=== PATIENT | female | born 1990 | race Caucasian/White ===

== ENCOUNTER 2018-11-12 08:02 | Emergency (ER) | payer OTHER, MEDICAID, SELFPAY ==
[2018-11-12 08:05] VITALS: BP 98/61; PULSE 74; RESP 18; TEMP 37.1; O2SAT 97
--- NOTE | 2018-11-12 08:27 | ED.ABDPAIN ---
HPI - Abdominal Pain General Chief Complaint: Abdominal Pain Stated Complaint: Appendix pain Time Seen by Provider: 11/12/18 08:22 Source: patient and old records reviewed Mode of arrival: ambulatory Limitations: no limitations History of Present Illness HPI narrative: Patient is a 28-year-old female who presents with right lower quadrant pain. She says it has been off and on his she says it comes every 3 months. She says multiple studies done including gastric emptying, she had multiple CTs and testing done. She has a GI doctor. She schedule for colonoscopy and endoscopy. She states this pain started in her right lower quadrant as always does around 5:00 a.m.. She feels nauseous not vomiting no fever. She said that time she just waited it out. She says no one will take her appendix out. But that is where she continues to have pain. Review of Systems Review of Systems GENERAL: Denies chills, fatigue, malaise, fever, sweats, travel HEENT: Denies sinus pain, ear pain, sore throat, difficulty swallowing, neck pain RESPIRATORY: Denies dyspnea, cough, wheezing, hemoptysis, sputum. CARDIOVASCULAR: Denies chest pain, palpitations, orthopnea, edema GASTROINTESTINAL: See HPI : Denies dysuria, frequency, incontinence, hematuria, urinary retention, flank pain. MUSCULOSKELETAL: Denies weakness, joint pain, or bony pain SKIN: No rash, no erythema, no pruritus NEUROLOGIC: Denies weakness, dizziness, headache, numbness, change in speech, confusion PSYCHIATRIC: No concerning psychosocial issues. 12 point review of systems is negative except for those stated above and HPI [facility] Medical History Chronic right lower quadrant pain (Acute) Exam Initial Vital Signs Initial Vital Signs: Vital Signs Temperature 98.8 F 11/12/18 08:05 Pulse Rate 74 11/12/18 08:05 Respiratory Rate 18 11/12/18 08:05 Blood Pressure 98/61 11/12/18 08:05 Pulse Oximetry 97 11/12/18 08:05 GENERAL: Well-appearing, well-nourished and in no acute distress. HEENT: Head atraumatic,EOMI, pupils reactive, face symmetric, moist mucous membranes CARDIOVASCULAR: Regular rate and rhythm without murmurs, rubs or gallops. RESPIRATORY: Breath sounds equal bilaterally, no wheezes rales or rhonchi. ABDOMEN: Soft mild discomfort right lower quadrant no guarding no rebound no rosvings sign EXTREMITIES: Normal range of motion, no clubbing or edema. Neurovascularly intact NEUROLOGICAL: Alert and oriented x4.Normal gait and speech. Cranial nerves II through XII grossly intact. SKIN: Warm, dry, no laceration, no petechiae, no rashes or lesions. Course Orders Ordered: ED Orders 11/12/18 08:30 US abdomen limited Stat 11/12/18 08:40 Complete Blood Count AUTO DIFF Stat Comprehensive Metabolic Panel Stat Lipase Stat 11/12/18 08:47 US pelvic complete Stat 11/12/18 08:50 Urine Culture Stat Urine Microscopic Stat Discontinued Medications Ketorolac Tromethamine (Toradol) 30 mg IV NOW ONE Stop: 11/12/18 08:30 Last Admin: 11/12/18 08:52 Dose: 30 mg Ondansetron HCl (Zofran) 4 mg IV NOW ONE Stop: 11/12/18 08:30 Last Admin: 11/12/18 08:52 Dose: 4 mg Vital Signs - 8 hr 11/12/18 08:05 11/12/18 08:30 11/12/18 10:07 Temperature 98.8 F Pulse Rate 74 68 78 Respiratory Rate 18 16 16 Blood Pressure [Left Arm] 98/61 90/55 L 93/62 Pulse Oximetry 97 98 100 MDM - Abdominal Pain Lab Data Attestation: I reviewed the patient's lab results. Result diagrams: 11/12/18 08:40 11/12/18 08:40 Lab Results 11/12/18 11/12/18 11/12/18 Range/Units 08:40 08:40 08:50 WBC 6.0 (4.5-11.0) X10^3/uL RBC 4.24 (4.0-5.2) X10^6/uL Hgb 13.5 (12.0-16.0) g/dL Hct 39.4 (36-46) % MCV 92.9 (80-100) fL MCH 31.8 (26-34) PG MCHC 34.2 (30-36) % RDW 12.0 (11.6-14.8) % Plt Count 245 (150-400) X10^3/uL Neut % (Auto) 61.7 (50-75) % Lymph % (Auto) 29.2 (25-40) % [place] % (Auto) 6.7 (3-14) % Eos % (Auto) 2.0 (2-4) % Baso % (Auto) 0.4 (0-2) % Neut # (Auto) 3700 (8966-3506) /uL Lymph # (Auto) 1800 (9867-0329) /uL [place] # (Auto) 400 (0-900) /uL Eos # (Auto) 100 (0-450) /uL Baso # (Auto) 0 (0-100) /uL Sodium 143 (137-145) mmol/L Potassium 4.0 (3.4-5.1) mmol/L Chloride 106 (98-107) mmol/L Carbon Dioxide 28 (22-32) mmol/L BUN 10 (7-17) mg/dL Creatinine 0.70 (0.52-1.04) mg/dL Estimated GFR > 60.0 (>60) mL/min BUN/Creatinine Ratio 14.3 (6-22) Glucose 96 (70-100) mg/dL Calcium 9.2 (8.4-10.2) mg/dL Total Bilirubin 0.8 (0.2-1.3) mg/dL AST 22 (14-36) IU/L ALT 18 (9-52) IU/L Alkaline Phosphatase 64 (38-126) U/L Total Protein 7.8 (6.3-8.2) g/dL Albumin 4.5 (3.5-5.0) g/dL Globulin 3.3 (1.7-4.1) g/dL Albumin/Globulin Ratio 1.4 (1.0-2.8) Lipase 111 (23-300) U/L Urine RBC None seen (0-5/HPF) Urine WBC 5-10/hpf H (0-5/HPF) Ur Squamous Epith Cells 1-5 /hpf (0-5/HPF) Urine Bacteria Few (2-10) H (None) Ur Culture Indicated? Specimen cultured Point of care testing: Point of Care Testing Test Results Negative Urine Dip Bedside Urine Glucose Negative Bedside Urine Bilirubin - Negative Bedside Urine Ketone - Negative Urine Specific [place] 1.015 Bedside Urine Occult Blood - Negative Bedside Urine pH 8.5 Bedside Urine Protein +/- 15 Bedside Urine Urobilinogen +/- 1mg Bedside Urine Nitrite - Negative Bedside Urine Leukocytes +/- 15 Esterase Imaging Data US - abdomen: Radiologist's impression: PROCEDURE: US ABDOMEN LIMITED INDICATIONS: RIGHT LOWER QUAD PAIN TECHNIQUE: Real-time focused scanning was performed of the abdomen with attention to the appendix, with image documentation. COMPARISON: None. FINDINGS: Appendix visualization: Not seen Appendix measurements: Unable to assess Associated findings: Echogenic fat: Unable to assess Appendiceal compressibility: Unable to assess Appendicoliths: Unable to assess Nearby free fluid: Minimal Lymphadenopathy: Not seen Tenderness on exam: Positive IMPRESSION: The appendix was not visualized. The patient was significantly tender overlying the right lower quadrant. If there is high clinical concern for appendicitis, please consider contrast enhanced CT of the abdomen and pelvis with oral and intravenous contrast for further evaluation. Dictated by: Ant Chow M.D. on 11/12/2018 at 9:21 pelvic US: Radiologist's impression: PROCEDURE: US PELVIC COMPLETE INDICATIONS: RLQ PAIN TECHNIQUE: Real-time scanning was performed of the pelvic organs, with image documentation. Additional endovaginal scanning was necessary due to incomplete visualization of the adnexal and endometrial structures by transabdominal scanning. COMPARISON: None. FINDINGS: Transabdominal scanning: Limited scanning through the kidneys shows no hydronephrosis. No pathologic free abdominal or pelvic fluid. Endovaginal scanning: Uterus: Uterus is normal in size at 9.3 x 4.2 x 6.2 cm. The endometrium measures 9 mm in combined thickness. No focal myometrial lesions are identified. A trace amount of fluid is seen within the endometrium. Prominent parametrial vessels are incidentally noted. Ovaries: The right ovary measures 4.3 x 2.2 x 3.3 cm. The left ovary measures 5.0 x 1.9 x 2.5 cm. Both ovaries are mildly enlarged. There is a complex 2.3 cm right ovarian cystic lesion and a simple appearing 2.0 cm left ovarian cyst. The right ovarian cystic lesion demonstrates central heterogeneous fluid with soft tissue located along the periphery and of mild increased peripheral vascularity. IMPRESSION: 1. Complex right ovarian cystic lesion may represent a collapsing ovarian cyst. A corpus luteum cyst or an ectopic cannot be completely excluded and correlation with beta hCG levels is recommended. 2. Simple left ovarian cyst. 3. Multiple prominent parametrial vessels within the pelvis. Please correlate clinically to exclude pelvic congestion syndrome. Dictated by: Ant Chow M.D. on 11/12/2018 at 9: MDM Narrative Medical decision making narrative: The patient has chronic ongoing abdominal right lower quadrant pain. She has appropriate outpatient follow-up for colonoscopy and EGD on her ultrasound. This time I think it more likely that her ovarian cyst is causing her discomfort rather than her appendix. She has no leukocytosis she is afebrile. She has had multiple CTs in the past at this time I do not believe her to needed CT. The appendix was not visualized on the abdominal ultrasound. She was previously treated for a UTI she denies any pain or frequent urination no vaginal discharge. Discharge Plan Departure Patient Disposition: Home Clinical Impression: Complex cyst of right ovary Discharge Date/Time: 11/12/18 10:47 Interventions: ED Discharge Assessment Last Done: 11/12/18 10:46 Instructions: DI for Ovarian Cyst Activity Restrictions/Additional Instructions: *You have been diagnosed with right ovarian cyst *What to do: At this time pain does not appear to be her appendix. I read it recommend to continue to follow up with her GI specialist. You do have a cyst on right ovary along with her left ovary. *Continue to take medications as directed *Follow up with your primary care provider in 2-3 days *Return to ER if you should have increasing pain persistent vomiting inability to tolerate fluids or any new, worsening or concerning symptoms Referrals: Barbara Mcclain MD [Primary Care Provider] -
[2018-11-12 08:30] VITALS: BP 90/55; PULSE 68; RESP 16; O2SAT 98
--- NOTE | 2018-11-12 08:30 | DI.US.S_ITS ---
PROCEDURE: US ABDOMEN LIMITED INDICATIONS: RIGHT LOWER QUAD PAIN TECHNIQUE: Real-time focused scanning was performed of the abdomen with attention to the appendix, with image documentation. COMPARISON: None. FINDINGS: Appendix visualization: Not seen Appendix measurements: Unable to assess Associated findings: Echogenic fat: Unable to assess Appendiceal compressibility: Unable to assess Appendicoliths: Unable to assess Nearby free fluid: Minimal Lymphadenopathy: Not seen Tenderness on exam: Positive IMPRESSION: The appendix was not visualized. The patient was significantly tender overlying the right lower quadrant. If there is high clinical concern for appendicitis, please consider contrast enhanced CT of the abdomen and pelvis with oral and intravenous contrast for further evaluation. Dictated by: Ant Chow M.D. on 11/12/2018 at 9:21 Approved by: Ant Chow M.D. on 11/12/2018 at 9:22
--- NOTE | 2018-11-12 08:47 | DI.US.S_ITS ---
PROCEDURE: US PELVIC COMPLETE INDICATIONS: RLQ PAIN TECHNIQUE: Real-time scanning was performed of the pelvic organs, with image documentation. Additional endovaginal scanning was necessary due to incomplete visualization of the adnexal and endometrial structures by transabdominal scanning. COMPARISON: None. FINDINGS: Transabdominal scanning: Limited scanning through the kidneys shows no hydronephrosis. No pathologic free abdominal or pelvic fluid. Endovaginal scanning: Uterus: Uterus is normal in size at 9.3 x 4.2 x 6.2 cm. The endometrium measures 9 mm in combined thickness. No focal myometrial lesions are identified. A trace amount of fluid is seen within the endometrium. Prominent parametrial vessels are incidentally noted. Ovaries: The right ovary measures 4.3 x 2.2 x 3.3 cm. The left ovary measures 5.0 x 1.9 x 2.5 cm. Both ovaries are mildly enlarged. There is a complex 2.3 cm right ovarian cystic lesion and a simple appearing 2.0 cm left ovarian cyst. The right ovarian cystic lesion demonstrates central heterogeneous fluid with soft tissue located along the periphery and of mild increased peripheral vascularity. IMPRESSION: 1. Complex right ovarian cystic lesion may represent a collapsing ovarian cyst. A corpus luteum cyst or an ectopic cannot be completely excluded and correlation with beta hCG levels is recommended. 2. Simple left ovarian cyst. 3. Multiple prominent parametrial vessels within the pelvis. Please correlate clinically to exclude pelvic congestion syndrome. Dictated by: Ant Chow M.D. on 11/12/2018 at 9:22 Approved by: Ant Chow M.D. on 11/12/2018 at 9:25
[2018-11-12] MEDS: ONDANSETRON 4 MG/2 ML INJ IV (08:52)
[2018-11-12] MEDS: KETOROLAC 60 MG/2 ML VIAL 30 MG IV (08:52)
[2018-11-12 08:58] LABS: Add Manual Diff / Slide Review NO; Basophils Absolute Auto 0 /uL (0-100); Basophils Percent Auto 0.4 % (0-2); Eosinophils Absolute Auto 100 /uL (0-450); Hematocrit 39.4 % (36-46); Hemoglobin 13.5 g/dL (12.0-16.0); Lymphocytes Absolute Auto 1800 /uL (1100-4500); Lymphocytes Percent Auto 29.2 % (25-40); Mean Corpuscular HGB Conc 34.2 % (30-36); Mean Corpuscular Hemoglobin 31.8 PG (26-34); Mean Corpuscular Volume 92.9 fL (80-100); Monocytes Absolute Auto 400 /uL (0-900); Monocytes Percent Auto 6.7 % (3-14); Neutrophils Absolute Auto 3700 /uL (1500-7000); Neutrophils Percent Auto 61.7 % (50-75); Platelet Count 245 X10^3/uL (150-400); Red Blood Cell Count 4.24 X10^6/uL (4.0-5.2)
[2018-11-12 09:01] LABS: RBC Urine None Seen (0-5/HPF)
[2018-11-12 09:03] LABS: Alanine Aminotransferase 18 IU/L (9-52); Albumin 4.5 g/dL (3.5-5.0); Albumin Globulin Ratio 1.4 (1.0-2.8); Alkaline Phosphatase 64 U/L (38-126); Aspartate Aminotransferase 22 IU/L (14-36); BUN Creatinine Ratio 14.3 (6-22); Bilirubin Total 0.8 mg/dL (0.2-1.3); Blood Urea Nitrogen 10 mg/dL (7-17); Calcium 9.2 mg/dL (8.4-10.2); Carbon Dioxide 28 mmol/L (22-32); Chloride 106 mmol/L (98-107); Estimated Glomerular Filt Rate > 60.0 mL/min (>60); Globulin 3.3 g/dL (1.7-4.1); Glucose 96 mg/dL (70-100); HEMOLYSIS < 15 (0-50); Lipase 111 U/L (23-300); Sodium 143 mmol/L (137-145); Total Protein 7.8 g/dL (6.3-8.2)
[2018-11-12 09:08] LABS: Bacteria Urine Few (2-10); Culture Indicated Urine Specimen Cultured; Squamous Epithelial Cell Urine 1-5 /HPF (0-5/HPF); WBC Urine 5-10/HPF (0-5/HPF)
[2018-11-12 10:07] VITALS: BP 93/62; PULSE 78; RESP 16; O2SAT 100
== END 2018-11-12 10:47 | disposition home or self-care (01) ==
PROVIDERS: Emergency Provider Emergency Medicine; PCP Family Medicine
DX: N83.201 Unspecified ovarian cyst, right side (principal)
CPT/HCPCS: 36591; 76705; 76856; 80053; 81003; 81015; 81025; 83690; 85025; 87077; 87086; 87186; 96374; 96375; 99283; 99284; J1885; J2405

== ENCOUNTER 2018-12-26 11:51 | Emergency (ER) | payer OTHER, MEDICAID, SELFPAY ==
[2018-12-26 13:11] VITALS: BP 100/62; PULSE 80; RESP 13; TEMP 36.6; O2SAT 99
== END 2018-12-26 15:19 | disposition left against medical advice (07) ==
PROVIDERS: Emergency Provider Emergency Medicine; PCP Family Medicine
DX: N93.9 Abnormal uterine and vaginal bleeding, unspecified (principal)
CPT/HCPCS: 99282

== ENCOUNTER 2019-03-06 19:53 | Emergency (ER) | payer OTHER, MEDICAID, SELFPAY ==
[2019-03-06 20:00] VITALS: BP 89/59; PULSE 81; RESP 16; TEMP 37.1; O2SAT 98
[2019-03-06 20:32] LABS: Add Manual Diff / Slide Review NO; Basophils Absolute Auto 0 /uL (0-100); Basophils Percent Auto 0.7 % (0-2); Eosinophils Absolute Auto 100 /uL (0-450); Eosinophils Percent Auto 2.2 % (2-4); Hematocrit 39.1 % (36-46); Hemoglobin 13.3 g/dL (12.0-16.0); Lymphocytes Absolute Auto 1800 /uL (1100-4500); Lymphocytes Percent Auto 27.5 % (25-40); Mean Corpuscular HGB Conc 34.1 % (30-36); Mean Corpuscular Hemoglobin 31.9 PG (26-34); Mean Corpuscular Volume 93.5 fL (80-100); Monocytes Absolute Auto 500 /uL (0-900); Neutrophils Absolute Auto 4200 /uL (1500-7000); Neutrophils Percent Auto 62.6 % (50-75); Platelet Count 258 X10^3/uL (150-400); Red Blood Cell Count 4.18 X10^6/uL (4.0-5.2); Red Cell Distribution Width 12.2 % (11.6-14.8); White Blood Cell Count 6.7 X10^3/uL (4.5-11.0)
--- NOTE | 2019-03-06 20:38 | PC.NURSE ---
reports pcp putting her on oral contraceptives that caused complictions and when she was told to stop about 9 days ago she states she started having bright red blood vaginal discharge. She now states there are clots with the bright red blood and she is soiling about 9 heavy duty tampons a day.
[2019-03-06 20:46] LABS: Alanine Aminotransferase 20 IU/L (<35); Albumin 4.3 g/dL (3.5-5.0); Albumin Globulin Ratio 1.4 (1.0-2.8); Alkaline Phosphatase 65 U/L (38-126); Aspartate Aminotransferase 29 IU/L (14-36); Bilirubin Total 0.9 mg/dL (0.2-1.3); Blood Urea Nitrogen 16 mg/dL (7-17); Calcium 8.9 mg/dL (8.4-10.2); Carbon Dioxide 28 mmol/L (22-32); Chloride 104 mmol/L (98-107); Estimated Glomerular Filt Rate > 60.0 mL/min (>60); Globulin 3.1 g/dL (1.7-4.1); Glucose 82 mg/dL (70-100); HEMOLYSIS < 15 (0-50); Potassium 3.8 mmol/L (3.4-5.1); Sodium 140 mmol/L (137-145); Total Protein 7.4 g/dL (6.3-8.2)
[2019-03-06 20:59] LABS: Bacteria Urine None Seen
[2019-03-06 21:07] VITALS: BP 97/57; PULSE 82; RESP 14; O2SAT 99
[2019-03-06 21:07] LABS: Culture Indicated Urine Cult Not Indicated; RBC Urine 10-30/HPF (0-5/HPF); Squamous Epithelial Cell Urine 0-1 /HPF (0-5/HPF); WBC Urine 1-5/HPF (0-5/HPF)
--- NOTE | 2019-03-06 21:16 | PC.NURSE ---
patient states i'm a little person, by blood pressure is always 90 over something
[2019-03-06 21:34] VITALS: BP 87/55; PULSE 65; O2SAT 99
--- NOTE | 2019-03-06 22:09 | ED_ITS ---
HPI - General Chief complaint: Vaginal Bleeding Stated complaint: BLEEDING NOT ON HER PERIOD WONT STOP BLEEDING Time Seen by Provider: 03/06/19 22:09 Source: patient Mode of arrival: Ambulatory Limitations: no limitations History of Present Illness HPI Narrative: The patient has endometriosis. Manages in the past has included Lupron and other hormonal approaches. Most recently she was started on high-d ose oral control, she is unsure of the exact compound she started the medication about 6 weeks ago. She had abdominal cramping and discomfort and developed heavy bleeding. She stopped the medication after 2 weeks. She did well for the next 2 weeks, but then developed heavy bleeding again 2 weeks ago. She continues to have sporadic heavy vaginal bleeding with clots and abdominal cramping. She is feeling weak or dizzy. She has no syncope/near syncope episodes. She is eating and drinking well, hydration is probably good. She has no nausea vomiting with the cramping. Bowel movements are normal. She is reasonably certain she is not . She has no dysuria. Patient : No Related Data Previous Rx's Medication Instructions Recorded medroxyprogesterone [Provera] 10 mg PO DAILY 10 Days tab 03/06/19 Review of Systems Review of Systems ROS Unobtainable: All systems reviewed & are unremarkable except as noted in HPI and below Constitutional Constitutional: Denies chills, Reports fatigue, Denies fever(s), Denies headache(s), Denies lethargy and Reports weakness Eyes Eyes: Denies change in vision ENT Ears, Nose, Mouth, and Throat: Reports dizziness, Denies headache(s), Denies nasal congestion, Denies neck pain and Reports disequilibrium Cardiovascular Cardiovascular: Denies chest pain, Reports lightheadedness, Denies palpitations, Denies dyspnea, Denies dyspnea on exertion and Denies orthopnea Respiratory Respiratory: Denies cough, Denies dyspnea, Denies dyspnea on exertion and Denies wheezing Gastrointestinal Gastrointestinal: Reports abdominal pain (Cramping as noted in HPI), Denies change in bowel habits, Denies diarrhea, Denies nausea and Denies vomiting Genitourinary Genitourinary: Denies hematuria, Reports menorrhagia, Denies dysuria, Denies flank pain, Denies urinary incontinence and Denies urinary urgency Musculoskeletal Musculoskeletal: Denies neck pain Integumentary/Breasts Skin/Breast: Denies pruritus, Denies erythema, Denies rash and Denies wounds Neurologic Neurologic: Reports dizziness, Denies headache(s), Denies memory loss, Reports disequilibrium and Reports weakness Psychiatric Psychiatric: Denies memory loss Endocrine Endocrine: Reports fatigue and Denies palpitations Allergic/Immunologic Allergic/Immunologic: Denies wheezing PMFSH - Past Medical History Additional medical history: Endometriosis Surgical history: Reports no surgical history [employer] history: Denies Uterine Fibroids Patient : No Psychiatric history: Reports no psych history Family History Family history: Reports no significant family history Exam Initial Vital Signs Initial Vital Signs: Vital Signs Temperature 98.8 F 03/06/19 20:00 Pulse Rate 81 03/06/19 20:00 Respiratory Rate 16 03/06/19 20:00 Blood Pressure 89/59 L 03/06/19 20:00 Pulse Oximetry 98 03/06/19 20:00 Const General: cooperative and well developed Nutritional Appearance: well nourished Orientation: alert, awake, oriented x3 and not confused HENVA Head: normocephalic and atraumatic Face and sinus: face symmetric Mouth: oral mucosae normal and moist mucous membranes Throat: posterior oropharynx normal, tonsils normal and uvula midline Eyes General: appearance normal, both eyes and all related structures Eyelids: eyelids normal Conjunctivae: conjunctivae normal Sclera: sclerae normal Pupils: PERRL EOM: EOM intact bilaterally Resp Effort & Inspection: normal respiratory effort and able to speak in complete sentences Auscultation: clear to auscultation bilaterally, no rales, no rhonchi and no wheezes Cardio Rate: regular rate Rhythm: regular rhythm Heart Sounds: no click, no gallops, no murmurs and no rubs Pulses: normal peripheral pulses GI Inspection: non-distended Palpation: soft, no hepatosplenomegaly, No guarding, No pulsatile mass and No tender Auscultation: normal bowel sounds Back/Spine/Pelvis Back: No back tenderness and No CVA tenderness Skin General: no rashes or lesions noted, No jaundice and No petechiae Neuro General: alert, oriented x3, gait normal and no focal motor deficits Speech: speech normal Extrem General: full ROM, no pedal edema and no calf tenderness Course Course Course Narrative: Vitals stable. Her CBC is stable. The patient be started on progesterone supplements for the next 10 days. She is advised to rest and drink plenty of fluids, she should recheck with her doctor in the next few days. She should return here if symptoms exacerbate. Orders Ordered: ED Orders 03/06/19 20:22 CMP [Comprehensive Metabolic Panel] Stat Complete Blood Count AUTO DIFF Stat 03/06/19 20:35 Urine Microscopic Stat Discontinued Medications Medroxyprogesterone Acetate (Medroxyprogesterone) 10 mg PO NOW ONE Stop: 03/06/19 22:27 Vital Signs Vital signs: Vital Signs - 8 hr 03/06/19 20:00 03/06/19 21:07 03/06/19 21:34 Temperature 98.8 F Pulse Rate 81 82 65 Respiratory Rate 16 14 Blood Pressure 89/59 L Blood Pressure [Right Arm] 97/57 L 87/55 L Pulse Oximetry 98 99 99 MDM - OB/Uterine Contractions Lab Data Result diagrams: 03/06/19 20:22 03/06/19 20:22 Labs: Lab Results 03/06/19 03/06/19 03/06/19 Range/Units 20:22 20:22 20:35 WBC 6.7 (4.5-11.0) X10^3/uL RBC 4.18 (4.0-5.2) X10^6/uL Hgb 13.3 (12.0-16.0) g/dL Hct 39.1 (36-46) % MCV 93.5 (80-100) fL MCH 31.9 (26-34) PG MCHC 34.1 (30-36) % RDW 12.2 (11.6-14.8) % Plt Count 258 (150-400) X10^3/uL Neut % (Auto) 62.6 (50-75) % Lymph % (Auto) 27.5 (25-40) % [place] % (Auto) 7.0 (3-14) % Eos % (Auto) 2.2 (2-4) % Baso % (Auto) 0.7 (0-2) % Neut # (Auto) 4200 (1445-9773) /uL Lymph # (Auto) 1800 (9815-9497) /uL [place] # (Auto) 500 (0-900) /uL Eos # (Auto) 100 (0-450) /uL Baso # (Auto) 0 (0-100) /uL Sodium 140 (137-145) mmol/L Potassium 3.8 (3.4-5.1) mmol/L Chloride 104 (98-107) mmol/L Carbon Dioxide 28 (22-32) mmol/L BUN 16 (7-17) mg/dL Creatinine 0.80 (0.52-1.04) mg/dL Estimated GFR > 60.0 (>60) mL/min BUN/Creatinine Ratio 20.0 (6-22) Glucose 82 (70-100) mg/dL Calcium 8.9 (8.4-10.2) mg/dL Total Bilirubin 0.9 (0.2-1.3) mg/dL AST 29 (14-36) IU/L ALT 20 (<35) IU/L Alkaline Phosphatase 65 (38-126) U/L Total Protein 7.4 (6.3-8.2) g/dL Albumin 4.3 (3.5-5.0) g/dL Globulin 3.1 (1.7-4.1) g/dL Albumin/Globulin Ratio 1.4 (1.0-2.8) Urine RBC 10-30/hpf H (0-5/HPF) Urine WBC 1-5/hpf (0-5/HPF) Ur Squamous Epith Cells 0-1 /hpf (0-5/HPF) Urine Bacteria None seen (None) Ur Culture Indicated? Cult not indicated Point of Care Testing Test Results Negative Urine Dip Bedside Urine Glucose Negative Bedside Urine Bilirubin - Negative Bedside Urine Ketone - Negative Urine Specific [place] 1.015 Bedside Urine Occult Blood +++ Bedside Urine pH 6.5 Bedside Urine Protein +/- 15 Bedside Urine Urobilinogen - Negative Bedside Urine Nitrite - Negative Bedside Urine Leukocytes - Negative Esterase Discharge Plan Departure Patient Disposition: Home Clinical Impression: Dysfunctional uterine bleeding, Endometriosis Instructions: DI for Menorrhagia Activity Restrictions/Additional Instructions: Provera 1 tablet daily for the next 10 days. Drink plenty of fluids and stay well hydrated. Recheck with her doctor in the next few days. Return the ER if symptoms escalate. Prescriptions: New medroxyprogesterone [Provera] 10 mg tablet 10 mg PO DAILY 10 Days RF: 0 Referrals: Barbara Mcclain MD [Primary Care Provider] - Stand Alone Forms: Work Release Note
[2019-03-06 22:38] VITALS: BP 93/64; PULSE 61; O2SAT 100
[2019-03-06 23:05] VITALS: BP 93/61; PULSE 68; O2SAT 100
[2019-03-06] MEDS: ONDANSETRON 4 MG ODT SL (23:11)
[2019-03-06] MEDS: MEDROXYPROGESTERONE ACETATE 10 MG TABLET PO (23:12)
== END 2019-03-06 23:37 | disposition home or self-care (01) ==
PROVIDERS: Emergency Provider Emergency Medicine; PCP Family Medicine
DX: N93.9 Abnormal uterine and vaginal bleeding, unspecified (principal); N80.9 Endometriosis, unspecified
CPT/HCPCS: 36415; 80053; 81003; 81015; 81025; 85025; 99282; 99283

== ENCOUNTER 2020-02-16 19:58 | Emergency (ER) | payer OTHER, MEDICAID, SELFPAY ==
[2020-02-16 20:16] VITALS: BP 103/64; PULSE 79; RESP 22; TEMP 36.8; O2SAT 100; BMI 19.0
[2020-02-16 21:34] LABS: WBC Urine None Seen (0-5/HPF)
[2020-02-16 21:44] LABS: Bacteria Urine Few (2-10); Culture Indicated Urine Cult Not Indicated; RBC Urine 1-5/HPF (0-5/HPF); Squamous Epithelial Cell Urine 1-5 /HPF (0-5/HPF)
[2020-02-16 22:09] LABS: Add Manual Diff / Slide Review NO; Basophils Absolute Auto 0 /uL (0-100); Basophils Percent Auto 0.7 % (0-2); Eosinophils Absolute Auto 200 /uL (0-450); Eosinophils Percent Auto 3.3 % (2-4); Hematocrit 33.7 % (36-46); Hemoglobin 11.5 g/dL (12.0-16.0); Lymphocytes Absolute Auto 2600 /uL (1100-4500); Lymphocytes Percent Auto 40.2 % (25-40); Mean Corpuscular HGB Conc 34.1 % (30-36); Mean Corpuscular Hemoglobin 31.7 PG (26-34); Mean Corpuscular Volume 92.9 fL (80-100); Monocytes Absolute Auto 600 /uL (0-900); Monocytes Percent Auto 9.4 % (3-14); Neutrophils Absolute Auto 3000 /uL (1500-7000); Neutrophils Percent Auto 46.4 % (50-75); Platelet Count 243 X10^3/uL (150-400); Red Blood Cell Count 3.63 X10^6/uL (4.0-5.2); Red Cell Distribution Width 12.7 % (11.6-14.8); White Blood Cell Count 6.5 X10^3/uL (4.5-11.0)
[2020-02-16 22:18] LABS: PTT Partial Thromboplastin Tim 30 SECONDS (26.4-36.2)
[2020-02-16 22:20] LABS: Alanine Aminotransferase 37 IU/L (<35); Albumin 3.8 g/dL (3.5-5.0); Albumin Globulin Ratio 1.2 (1.0-2.8); Alkaline Phosphatase 113 U/L (38-126); Aspartate Aminotransferase 39 IU/L (14-36); BUN Creatinine Ratio 20.6 (6-22); Bilirubin Total 0.3 mg/dL (0.2-1.3); Blood Urea Nitrogen 13 mg/dL (7-17); Calcium 8.6 mg/dL (8.4-10.2); Carbon Dioxide 29 mmol/L (22-32); Chloride 109 mmol/L (98-107); Estimated Glomerular Filt Rate > 60.0 mL/min (>60); Globulin 3.1 g/dL (1.7-4.1); Glucose 93 mg/dL (70-100); HEMOLYSIS < 15 (0-50); Lipase 215 U/L (23-300); Potassium 3.7 mmol/L (3.4-5.1); Sodium 141 mmol/L (137-145); Total Protein 6.9 g/dL (6.3-8.2)
[2020-02-16 22:42] VITALS: BP 127/64; PULSE 88; RESP 16; O2SAT 98
[2020-02-16 23:00] VITALS: BP 103/69; PULSE 89; RESP 15; O2SAT 98
--- NOTE | 2020-02-16 23:23 | ED_ITS ---
HPI - Female Genitourinary General Chief complaint: Vaginal Bleeding Stated complaint: BLEEDING PAIN MUCUS NOT SURE IF Time Seen by Provider: 02/16/20 20:14 Source: patient Mode of arrival: Ambulatory Limitations: no limitations History of Present Illness HPI Narrative: 30-year-old female nonsmoker with history of endometriosis, appendicitis presents with the chief complaint of right flank pain with radia tion into her right groin over the course of the day. She states that she has episodes of pain that lasts 20-30 minutes without any obvious provocation or palliation. She denies any fever chills. She has had nausea but no vomiting. She denies any diarrhea or constipation. She does state that she has had some vaginal spotting but denies any discharge. MD Complaint: vaginal bleeding Onset (ago): hour(s) Location: RLQ Female Urogenital Radiation: R Flank Severity: moderate Quality: Aching and Cramping Duration: intermittent Relieving factors: none Exacerbating factors: none Urinary symptoms: Difficulty Urinating Vaginal discharge: dark blood Sexual activity: No Patient : No Associated symptoms: nausea/vomiting Related Data Previous Rx's Medication Instructions Recorded ketorolac 10 mg PO Q6H PRN #14 tab 02/17/20 Allergies Allergy/AdvReac Type Severity Reaction Status Date / Time aspirin Allergy Anaphylaxis Verified 02/17/20 01:43 Iodinated Contrast Media Allergy Verified 02/17/20 01:44 Penicillins Allergy Verified 02/17/20 01:43 Review of Systems Constitutional Constitutional: Denies chills, Denies fatigue, Denies fever(s), Denies frequent falls, Denies lethargy and Denies weakness Eyes Eyes: Denies change in vision, Denies eye discharge, Denies irritation and Pablo es loss of vision ENT Ears, Nose, Mouth, and Throat: Denies change in voice, Denies dizziness, Denies neck pain, Denies sore throat and Denies throat swelling Cardiovascular Cardiovascular: Denies chest pain, Denies irregular heart rhythm, Denies lightheadedness, Denies palpitations, Denies dyspnea, Denies dyspnea on exertion and Denies orthopnea Respiratory Respiratory: Denies cough, Denies dyspnea, Denies dyspnea on exertion and Denies wheezing Gastrointestinal Gastrointestinal: Denies abdominal pain, Denies change in bowel habits, Denies diarrhea, Denies nausea and Denies vomiting Genitourinary Genitourinary: Reports pelvic pain Comments: right flank pain Musculoskeletal Musculoskeletal: Denies neck pain and Denies numbness Integumentary/Breasts Skin/Breast: Denies pruritus, Denies erythema, Denies rash and Denies wounds Neurologic Neurologic: Denies behavioral changes, Denies confusion, Denies dizziness, Denies frequent falls, Denies loss of vision, Denies numbness and Denies weakness Psychiatric Psychiatric: Denies anxiety, Denies behavioral changes, Denies confusion, Denies depression, Denies homicidal ideation and Denies suicidal ideation Endocrine Endocrine: Denies fatigue, Denies flushing and Denies palpitations Hematologic/Lymphatic Hematologic/Lymphatic: Denies easy bruising Allergic/Immunologic Allergic/Immunologic: Denies urticaria, Denies throat swelling and Denies wheezing Patient History Medical History Chronic right lower quadrant pain alcohol intake frequency: a few times a month Substance Use Type: does not use, former substance user and methamphetamine Exam Narrative Exam Narrative: GENERAL: [30] year old patient appears stated age. Well- nourished, well-developed patient, in mild distress. HEAD: Atraumatic. Normocephalic. EYES: Pupils equal round and reactive. Extraocular motions intact. No scleral icterus. No injection or drainage. ENT: Nose without bleeding, purulent drainage. Throat without erythema, tonsillar hypertrophy or exudate. Airway patent. NECK: Trachea midline. Non tender CARDIOVASCULAR: Regular rate and rhythm without murmurs, gallops, or rubs. RESPIRATORY: Clear to auscultation. Breath sounds equal bilaterally. No wheezes, rales, or rhonchi. GASTROINTESTINAL: Abdomen soft, non-tender, nondistended. Bowel sounds present in all 4 quadrants PELVIC: scant dark bleeding via closed os. No pain on bimaunual EXTREMITIES: No edema or joint tenderness. BACK: Nontender without deformity or crepitance. No flank tenderness. NEURO: AOx3. SKIN: No rash or erythema of visible areas Initial Vital Signs Initial Vital Signs: Vital Signs Temperature 98.3 F 02/16/20 20:16 Pulse Rate 79 02/16/20 20:16 Respiratory Rate 22 02/16/20 20:16 Blood Pressure 103/64 02/16/20 20:16 Pulse Oximetry 100 02/16/20 20:16 Course Orders Ordered: ED Orders 02/16/20 21:31 Urine Microscopic Stat 02/16/20 22:00 Complete Blood Count AUTO DIFF Stat Comprehensive Metabolic Panel Stat Lipase Stat Partial Thromboplastin Time Stat Prothrombin Time INR Stat 02/17/20 00:01 CT kidney ureter bladder (KUB) Stat Discontinued Medications Sodium Chloride (Normal Saline 0.9%) 1,000 mls @ 1,000 mls/hr IV BOLUS ONE Stop: 02/17/20 01:00 Last Infusion: 02/17/20 01:15 Dose: 0 mls/hr Documented by: Admin: 02/17/20 00:15 Dose: 1,000 mls/hr Documented by: AUNDREA Ketorolac Tromethamine (Ketorolac 60 Mg/2 Ml Vial) 15 mg IV NOW ONE Stop: 02/17/20 00:02 Last Admin: 02/17/20 00:15 Dose: 15 mg Documented by: AUNDREA Ondansetron HCl (Ondansetron 4 Mg/2 Ml Inj) 4 mg IV NOW ONE Stop: 02/17/20 00:08 Last Admin: 02/17/20 00:15 Dose: 4 mg Documented by: AUNDREA Ondansetron HCl (Ondansetron 4 Mg/2 Ml Inj) 4 mg IV NOW ONE Stop: 02/17/20 00:08 Vital Signs Vital signs: Vital Signs - 8 hr 02/16/20 20:16 02/16/20 22:42 02/16/20 23:00 Temperature 98.3 F Pulse Rate 79 88 89 Respiratory Rate 22 16 15 Blood Pressure 103/64 127/64 103/69 Pulse Oximetry 100 98 98 02/16/20 23:30 02/17/20 00:00 02/17/20 00:30 Temperature Pulse Rate 85 81 69 Respiratory Rate Blood Pressure 98/55 L 104/64 95/56 L Pulse Oximetry 99 99 100 02/17/20 01:00 02/17/20 01:30 02/17/20 02:00 Temperature Pulse Rate 69 72 74 Respiratory Rate Blood Pressure 99/61 99/73 97/67 Pulse Oximetry 100 100 99 MDM - Female Genitourinary Lab Data Result diagrams: 02/16/20 22:00 02/16/20 22:00 Labs: Lab Results 02/16/20 02/16/20 02/16/20 Range/Units 21:31 22:00 22:00 WBC 6.5 (4.5-11.0) X10^3/uL RBC 3.63 L (4.0-5.2) X10^6/uL Hgb 11.5 L (12.0-16.0) g/dL Hct 33.7 L (36-46) % MCV 92.9 (80-100) fL MCH 31.7 (26-34) PG MCHC 34.1 (30-36) % RDW 12.7 (11.6-14.8) % Plt Count 243 (150-400) X10^3/uL Neut % (Auto) 46.4 L (50-75) % Lymph % (Auto) 40.2 H (25-40) % [place] % (Auto) 9.4 (3-14) % Eos % (Auto) 3.3 (2-4) % Baso % (Auto) 0.7 (0-2) % Neut # (Auto) 3000 (0457-2708) /uL Lymph # (Auto) 2600 (6073-3946) /uL [place] # (Auto) 600 (0-900) /uL Eos # (Auto) 200 (0-450) /uL Baso # (Auto) 0 (0-100) /uL PT 12.0 (10.1-12.7) SECONDS INR 1.0 (0.9-1.3) APTT 30 (26.4-36.2) SECONDS Sodium (137-145) mmol/L Potassium (3.4-5.1) mmol/L Chloride (98-107) mmol/L Carbon Dioxide (22-32) mmol/L BUN (7-17) mg/dL Creatinine (0.52-1.04) mg/dL Estimated GFR (>60) mL/min BUN/Creatinine Ratio (6-22) Glucose (70-100) mg/dL Calcium (8.4-10.2) mg/dL Total Bilirubin (0.2-1.3) mg/dL AST (14-36) IU/L ALT (<35) IU/L Alkaline Phosphatase (38-126) U/L Total Protein (6.3-8.2) g/dL Albumin (3.5-5.0) g/dL Globulin (1.7-4.1) g/dL Albumin/Globulin Ratio (1.0-2.8) Lipase (23-300) U/L Urine RBC 1-5/hpf D (0-5/HPF) Urine WBC None seen (0-5/HPF) Ur Squamous Epith Cells 1-5 /hpf (0-5/HPF) Urine Bacteria Few (2-10) H (None) Ur Culture Indicated? Cult not indicated 02/16/20 Range/Units 22:00 WBC (4.5-11.0) X10^3/uL RBC (4.0-5.2) X10^6/uL Hgb (12.0-16.0) g/dL Hct (36-46) % MCV (80-100) fL MCH (26-34) PG MCHC (30-36) % RDW (11.6-14.8) % Plt Count (150-400) X10^3/uL Neut % (Auto) (50-75) % Lymph % (Auto) (25-40) % [place] % (Auto) (3-14) % Eos % (Auto) (2-4) % Baso % (Auto) (0-2) % Neut # (Auto) (3842-5035) /uL Lymph # (Auto) (9064-6536) /uL [place]elia # (Auto) (0-900) /uL Eos # (Auto) (0-450) /uL Baso # (Auto) (0-100) /uL PT (10.1-12.7) SECONDS INR (0.9-1.3) APTT (26.4-36.2) SECONDS Sodium 141 (137-145) mmol/L Potassium 3.7 (3.4-5.1) mmol/L Chloride 109 H (98-107) mmol/L Carbon Dioxide 29 (22-32) mmol/L BUN 13 (7-17) mg/dL Creatinine 0.63 (0.52-1.04) mg/dL Estimated GFR > 60.0 (>60) mL/min BUN/Creatinine Ratio 20.6 (6-22) Glucose 93 (70-100) mg/dL Calcium 8.6 (8.4-10.2) mg/dL Total Bilirubin 0.3 (0.2-1.3) mg/dL AST 39 H (14-36) IU/L ALT 37 H (<35) IU/L Alkaline Phosphatase 113 (38-126) U/L Total Protein 6.9 (6.3-8.2) g/dL Albumin 3.8 (3.5-5.0) g/dL Globulin 3.1 (1.7-4.1) g/dL Albumin/Globulin Ratio 1.2 (1.0-2.8) Lipase 215 (23-300) U/L Urine RBC (0-5/HPF) Urine WBC (0-5/HPF) Ur Squamous Epith Cells (0-5/HPF) Urine Bacteria (None) Ur Culture Indicated? Point of Care Testing Test Results Negative Urine Dip Bedside Urine Glucose Negative Bedside Urine Bilirubin - Negative Bedside Urine Ketone - Negative Urine Specific [place] 1.015 Bedside Urine Occult Blood ++ Bedside Urine pH 8.0 Bedside Urine Protein - Negative Bedside Urine Urobilinogen - Negative Bedside Urine Nitrite - Negative Bedside Urine Leukocytes - Negative Esterase Imaging Data CT KUB: Radiologist's Impression: No stone or other abnormal finding MDM Narrative Medical decision making narrative: Multiple etiologies for patient's symptoms considered including: [Kidney stone given intermittent unprovoked episodes of pain with radiation into her groin and blood in urine versus pelvic inflammatory disease given bleeding and undifferentiated source of pain versus other ] Patient's symptoms improved over duration of stay with above-stated therapies. Findings and discharge diagnosis discussed with patient/family followed by verbalization of understanding Return precautions discussed with patient/family whom verbalize understanding. Discharge Plan Departure Patient Disposition: Home Clinical Impression: Vaginal bleeding Abdominal pain Qualifiers: Abdominal location: right lower quadrant Qualified Code(s): R10.31 - Right lower quadrant pain Instructions: DI for Abdominal Pain-Adult, DI for Vaginal Bleeding Activity Restrictions/Additional Instructions: *You have been diagnosed with [abdominal pain, very reassuring exam and labs and CT scan.] *What to do: *Take medications as directed *Follow up with your primary care provider in 2-3 days, call for an appointment. Let them know you were seen in the Emergency Department and that we ask that you be seen in follow up *Return to ER if you should have any new, worsening or concerning symptoms Prescriptions: New ketorolac 10 mg tablet 10 mg PO Q6H PRN (Reason: pain) Qty: 14 RF: 0 Referrals: Barbara Mcclain MD [Primary Care Provider] -
[2020-02-16 23:30] VITALS: BP 98/55; PULSE 85; O2SAT 98; O2SAT 99
[2020-02-17] VITALS: BP 104/64; PULSE 81; O2SAT 99
--- NOTE | 2020-02-17 00:01 | DI.CT.S_ITS ---
PROCEDURE: CT KIDNEY URETER BLADDER (KUB) INDICATIONS: severe flank pain, hematuria TECHNIQUE: Noncontrast 5 mm thick sections acquired from the diaphragms to the symphysis. 5 mm thick coronal and sagittal reformats were then performed. For radiation dose reduction, the following was used: automated exposure control, adjustment of mA and/or kV according to patient size. COMPARISON: [facility], CT, CT ABDOMEN PELVIS WITHOUT CONTRAST, 07/25/2018, 15:31. FINDINGS: Image quality: Excellent. Lung bases: Lung bases are clear. Heart size is normal. Urinary system: Both kidneys are normal in size. No kidney stones. No hydronephrosis or perinephric fat stranding. Both ureters appear non-dilated throughout their expected courses. Bladder wall thickness is normal; no calcified bladder stones. Other solid organs: Subcentimeter hypodensity within the lateral inferior aspect of the right hepatic lobe too small to further characterize but statistically represents a simple cyst. Gallbladder contracted, otherwise unremarkable. Pancreas is normal in contours. Spleen is normal in size. No adrenal nodules. Peritoneum and bowel: Unenhanced bowel loops demonstrate normal wall thickness and caliber. Diffuse moderate colonic stool burden. No evidence of obstruction. Appendix is normal. No free fluid or air. Nodes and vessels: No retroperitoneal or mesenteric adenopathy by size criteria. Aorta and inferior vena cava are normal in caliber. Abdominal wall: No ventral hernias. Pelvis: Left ovarian cysts. Small amount of simple free fluid within the adnexa. No inguinal hernias or adenopathy. Bones: No suspicious bony lesions. No vertebral body compression fractures. IMPRESSION: No evidence of urinary tract calcification or obstructive uropathy. Moderate colonic stool burden. No evidence of obstruction. Small amount of free fluid within the pelvis, likely physiologic. No significant change from preliminary report. Dictated by: Prince Shaver D.O. on 02/17/2020 at 7:56 Approved by: Prince Shaver D.O. on 02/17/2020 at 8:21
[2020-02-17] MEDS: ONDANSETRON 4 MG/2 ML INJ IV (00:15)
[2020-02-17] MEDS: SODIUM CHLORIDE 0.9% 1,000 ML 1000 ML IV (00:15)
[2020-02-17] MEDS: KETOROLAC 60 MG/2 ML VIAL 15 MG IV (00:15)
[2020-02-17 00:30] VITALS: BP 95/56; PULSE 69; O2SAT 100
[2020-02-17 01:00] VITALS: BP 99/61; PULSE 69; O2SAT 100
[2020-02-17 01:30] VITALS: BP 99/73; PULSE 72; O2SAT 100
[2020-02-17 02:00] VITALS: BP 97/67; PULSE 74; O2SAT 99
[2020-02-21 23:15] LABS: Chlamydia trachomatis Negative (Negative); Mycoplasma genitalium Negative (Negative); Neisseria gonorrhoeae Negative (Negative)
== END 2020-02-17 02:20 | disposition home or self-care (01) ==
PROVIDERS: Emergency Provider Emergency Medicine; PCP Family Medicine
DX: N93.9 Abnormal uterine and vaginal bleeding, unspecified (principal); R10.31 Right lower quadrant pain
CPT/HCPCS: 36415; 74176; 80053; 81003; 81015; 81025; 83690; 85025; 85610; 85730; 87070; 87077; 87147; 87186; 87205; 87210; 87252; 87491; 87591; 96361; 96374; 96375; 99284; J1885; J2405

== ENCOUNTER 2020-07-04 16:17 | Emergency (ER) | payer OTHER, MEDICAID, SELFPAY ==
[2020-07-04 16:28] VITALS: BP 108/66; PULSE 98; RESP 20; TEMP 36.8; O2SAT 100; BMI 18.3
[2020-07-04 17:17] LABS: Add Manual Diff / Slide Review NO; Basophils Absolute Auto 0 /uL (0-100); Basophils Percent Auto 0.4 % (0-2); Eosinophils Absolute Auto 200 /uL (0-450); Eosinophils Percent Auto 2.3 % (2-4); Hematocrit 41.7 % (36-46); Lymphocytes Absolute Auto 2000 /uL (1100-4500); Mean Corpuscular HGB Conc 33.5 % (30-36); Mean Corpuscular Hemoglobin 30.7 PG (26-34); Mean Corpuscular Volume 91.7 fL (80-100); Monocytes Absolute Auto 500 /uL (0-900); Monocytes Percent Auto 6.8 % (3-14); Neutrophils Absolute Auto 4000 /uL (1500-7000); Neutrophils Percent Auto 60.5 % (50-75); Platelet Count 275 X10^3/uL (150-400); Red Blood Cell Count 4.55 X10^6/uL (4.0-5.2); Red Cell Distribution Width 13.5 % (11.6-14.8); White Blood Cell Count 6.6 X10^3/uL (4.5-11.0)
--- NOTE | 2020-07-04 17:32 | ED_ITS ---
HPI - Female Genitourinary General Chief complaint: Urogenital-Female Stated complaint: sent by MD Time Seen by Provider: 07/04/20 16:58 Source: patient Mode of arrival: Ambulatory Limitations: no limitations History of Present Illness HPI Narrative: PATIENT IS A 30-YEAR-OLD FEMALE WHO PRESENTS WITH VAGINAL BLEEDING. She states that she had a Pap smear and since then she has had increased vaginal bleeding and is having clots. She states she is currently going through 2 pads or tampons in an hour. She feels dizzy and lightheaded when she stands up. She is due to start her menstrual cycle on July 20. Her Pa p smear was done in [place]. She called her OBGYN who recommended she come to the ED for further evaluation. MD Complaint: vaginal bleeding Related Data Previous Rx's Medication Instructions Recorded ketorolac 10 mg PO Q6H PRN #14 tab 02/17/20 Allergies Allergy/AdvReac Type Severity Reaction Status Date / Time aspirin Allergy Anaphylaxis Verified 02/17/20 01:43 Iodinated Contrast Media Allergy Verified 02/17/20 01:44 Penicillins Allergy Verified 02/17/20 01:43 Review of Systems Review of Systems ROS Unobtainable: All systems reviewed & are unremarkable except as noted in HPI and below Constitutional Constitutional: Denies chills, Denies fever(s), Denies lethargy and Denies weakness ENT Ears, Nose, Mouth, and Throat: Denies vertigo and Denies dizziness Cardiovascular Cardiovascular: Denies chest pain, Denies syncope, Denies irregular heart rhythm, Reports lightheadedness, Denies palpitations, Denies dyspnea, Denies dyspnea on exertion and Denies orthopnea Respiratory Respiratory: Denies cough, Denies dyspnea, Denies dyspnea on exertion and Denies wheezing Gastrointestinal Gastrointestinal: Denies abdominal pain, Denies change in bowel habits, Denies diarrhea, Denies nausea and Denies vomiting Genitourinary Genitourinary: Reports as per HPI Genitourinary: Reports as per HPI Integumentary/Breasts Skin/Breast: Denies pruritus, Denies erythema, Denies rash and Denies wounds Neurologic Neurologic: Denies vertigo, Denies dizziness, Denies syncope and Denies weakness Endocrine Endocrine: Denies palpitations Allergic/Immunologic Allergic/Immunologic: Denies wheezing Patient History Medical History (Updated 07/04/20 @ 18:39 by Claudia Bergeron DO) Chronic right lower quadrant pain alcohol intake frequency: a few times a month Substance Use Type: former substance user, marijuana and methamphetamine Exam Initial Vital Signs Initial Vital Signs: Vital Signs Temperature 98.2 F 07/04/20 16:28 Pulse Rate 98 H 07/04/20 16:28 Respiratory Rate 20 07/04/20 16:28 Blood Pressure 108/66 07/04/20 16:28 Pulse Oximetry 100 07/04/20 16:28 GENERAL: Alert well-appearing thin 30-year-old female and in no acute distress. HEENT: Head atraumatic,EOMI, pupils reactive, face symmetric, moist mucous membranes CARDIOVASCULAR: Regular rate and rhythm without murmurs, rubs or gallops. RESPIRATORY: Breath sounds equal bilaterally, no wheezes rales or rhonchi. ABDOMEN: Soft, nontender. Normoactive bowel sounds all 4 quadrants. No guarding or rebound. PELVIC: External genitalia is normal, no vaginal bleeding, no vaginal discharge, no odor, cervical os is closed, no adnexal tenderness EXTREMITIES: Normal range of motion, no clubbing or edema. Neurovascularly intact NEUROLOGICAL: Alert and oriented x4.Normal gait and speech. SKIN: Warm, dry, no laceration, no petechiae, no rashes or lesions. Course Orders Ordered: ED Orders 07/04/20 17:07 CBC Auto Diff [Complete Blood Count AUTO DIFF] Stat CHEM7 [Basic Metabolic Panel] Stat 07/04/20 17:50 US transvaginal Stat 07/04/20 18:20 Urine Microscopic Stat Vital Signs Vital signs: Vital Signs - 8 hr 07/04/20 16:28 Temperature 98.2 F Pulse Rate 98 H Respiratory Rate 20 Blood Pressure 108/66 Pulse Oximetry 100 [facility] - Female Genitourinary Lab Data Attestation: I reviewed the patient's lab results. Result diagrams: 07/04/20 17:07 07/04/20 17:07 Labs: Lab Results 07/04/20 07/04/20 07/04/20 Range/Units 17:07 17:07 18:20 WBC 6.6 (4.5-11.0) X10^3/uL RBC 4.55 (4.0-5.2) X10^6/uL Hgb 14.0 (12.0-16.0) g/dL Hct 41.7 (36-46) % MCV 91.7 (80-100) fL MCH 30.7 (26-34) PG MCHC 33.5 (30-36) % RDW 13.5 (11.6-14.8) % Plt Count 275 (150-400) X10^3/uL Neut % (Auto) 60.5 (50-75) % Lymph % (Auto) 30.0 (25-40) % [place] % (Auto) 6.8 (3-14) % Eos % (Auto) 2.3 (2-4) % Baso % (Auto) 0.4 (0-2) % Neut # (Auto) 4000 (5694-1452) /uL Lymph # (Auto) 2000 (5583-8664) /uL [place] # (Auto) 500 (0-900) /uL Eos # (Auto) 200 (0-450) /uL Baso # (Auto) 0 (0-100) /uL Sodium 139 (137-145) mmol/L Potassium 3.7 (3.4-5.1) mmol/L Chloride 102 (98-107) mmol/L Carbon Dioxide 26 (22-32) mmol/L BUN 13 (7-17) mg/dL Creatinine 0.81 (0.52-1.04) mg/dL Estimated GFR > 60.0 (>60) mL/min BUN/Creatinine Ratio 16.0 (6-22) Glucose 105 H (70-100) mg/dL Calcium 9.5 (8.4-10.2) mg/dL Urine RBC 1-5/hpf (0-5/HPF) Urine WBC None seen (0-5/HPF) Ur Squamous Epith Cells 5-10 /hpf H (0-5/HPF) Amorphous Sediment 2+ Urine Bacteria None seen (None) Ur Culture Indicated? Cult not indicated Point of Care Testing Test Results Negative Urine Dip Bedside Urine Glucose Negative Bedside Urine Bilirubin - Negative Bedside Urine Ketone - Negative Urine Specific [place] 1.030 Bedside Urine Occult Blood + Bedside Urine pH 6 Bedside Urine Protein +/- 15 Bedside Urine Urobilinogen - Negative Bedside Urine Nitrite - Negative Bedside Urine Leukocytes - Negative Esterase Imaging Data US - AQUACULTURIST: Radiologist's Impression: PROCEDURE: US TRANSVAGINAL COMPARISON: None. INDICATIONS: vag bleeding and pain. Patient just voided, and transabdominal imaging was not helpful. FINDINGS: Uterus measures 6.1 x 3.7 x 5.7 cm. The endometrial stripe is very thin, measuring 1 mm. No fibroids identified. Right ovary measures 2.4 x 1.4 x 1.9 cm. Left ovary measures 3.6 x 4.7 x 1.4 cm. The left ovary has multiple small cysts. IMPRESSION: 1. Unremarkable transvaginal pelvic ultrasound. Uterus is unremarkable. No fibroids. No thickening of the endometrial stripe. Comment: Preliminary findings were reported by the metal coater operator to the referring provider at the time of study completion. Dictated by: Pa Bangura M.D. on 07/04/2020 at 18:42 MDM Narrative Medical decision making narrative: The patient is does not have significant vaginal bleeding on exam. She has been hemodynamically stable in the emergency department. Hemoglobin hematocrit are also within normal limits despite female of bleeding she is having. She does have a OBGYN who I recommend she follow up with. Discharge Plan Departure Patient Disposition: Home Clinical Impression: Vaginal bleeding Instructions: DI for Vaginal Bleeding Activity Restrictions/Additional Instructions: *You have been diagnosed with vaginal bleeding *What to do: At this time I recommend following up with her OBGYN. I suspect that your bleeding will decrease. You had not had significant blood loss. *Continue to take medications as directed Tylenol or ibuprofen if needed as directed for pain *Follow up with your primary care provider in 2-3 days *Return to ER if you should have significant vaginal bleeding going through a super pad 2/hr or more. Increasing pain, passing out, lightheaded, shortness of breath [or] any new, worsening or concerning symptoms Prescriptions: No Action ketorolac 10 mg tablet 10 mg PO Q6H PRN (Reason: pain) Qty: 14 RF: 0 Referrals: Barbara Mcclain MD [Primary Care Provider] -
[2020-07-04 17:33] LABS: Blood Urea Nitrogen 13 mg/dL (7-17); Calcium 9.5 mg/dL (8.4-10.2); Carbon Dioxide 26 mmol/L (22-32); Chloride 102 mmol/L (98-107); Estimated Glomerular Filt Rate > 60.0 mL/min (>60); Glucose 105 mg/dL (70-100); HEMOLYSIS < 15 (0-50); Potassium 3.7 mmol/L (3.4-5.1); Sodium 139 mmol/L (137-145)
--- NOTE | 2020-07-04 17:50 | DI.US.S_ITS ---
PROCEDURE: US TRANSVAGINAL COMPARISON: None. INDICATIONS: vag bleeding and pain. Patient just voided, and transabdominal imaging was not helpful. FINDINGS: Uterus measures 6.1 x 3.7 x 5.7 cm. The endometrial stripe is very thin, measuring 1 mm. No fibroids identified. Right ovary measures 2.4 x 1.4 x 1.9 cm. Left ovary measures 3.6 x 4.7 x 1.4 cm. The left ovary has multiple small cysts. IMPRESSION: 1. Unremarkable transvaginal pelvic ultrasound. Uterus is unremarkable. No fibroids. No thickening of the endometrial stripe. Comment: Preliminary findings were reported by the call worker to the referring provider at the time of study completion. Dictated by: Pa Bangura M.D. on 07/04/2020 at 18:42 Approved by: Pa Bangura M.D. on 07/04/2020 at 18:44
[2020-07-04 18:29] LABS: Bacteria Urine None Seen; WBC Urine None Seen (0-5/HPF)
[2020-07-04 18:38] LABS: Amorphous Sediment Urine 2+; Culture Indicated Urine Cult Not Indicated; RBC Urine 1-5/HPF (0-5/HPF); Squamous Epithelial Cell Urine 5-10 /HPF (0-5/HPF)
[2020-07-04 19:01] VITALS: BP 97/69; PULSE 92; RESP 16; O2SAT 100
== END 2020-07-04 19:02 | disposition home or self-care (01) ==
PROVIDERS: Emergency Provider Emergency Medicine; PCP Family Medicine
DX: N93.9 Abnormal uterine and vaginal bleeding, unspecified (principal)
CPT/HCPCS: 36415; 76830; 80048; 81003; 81015; 81025; 85025; 99284